=== PATIENT | male | born 1970 | race Caucasian/White ===

== ENCOUNTER → 2018-02-21 | Outpatient (CLI) | payer BC, MEDICAID | END | disposition home or self-care (01) | LOC: CFH 07:38 | PROVIDERS: ATTEND Nurse Practitioner Family | DX: R42 Dizziness and giddiness (principal); R06.02 Shortness of breath; E78.5 Hyperlipidemia, unspecified | CPT/HCPCS: 93306 ==

== ENCOUNTER 2019-08-17 02:26 | Emergency (ER) | payer OTHER ==
[~2019-08-17] VITALS: Ht 170.2 cm; Wt 82.8 kg
--- NOTE | 2019-08-17 02:43 | NUR ---
PT. TO THE ER WITH C/O LOWER ABDOMINAL PAIN ONSET 2099. REPORTS THAT HE ATE A CHILI BURGER AROUND 1545 AND HE BELIEVES HE HAS FOOD POISONING. REPORTS EMESIS X 3 LINING CLOSER. NO ABDOMINAL SURGERIES. NO FEVER OR URINARY SYMPTOMS. NO CHEST PAIN, SHORTNESS OF BREATH OR TROUBLE BREATHING.
[2019-08-17] MEDS ORDERED: ONDANSETRON ODT 4 MG ONE (02:59)
[2019-08-17] MEDS ORDERED: MAALOX/HYOSCYAMINE/LIDOCAINE 45 ML BTL ONE (02:59)
[2019-08-17] MEDS ORDERED: MAALOX/HYOSCYAMINE/LIDOCAINE 45 ML BTL PO ONE (03:00)
[2019-08-17] MEDS ORDERED: ONDANSETRON ODT 4 MG PO ONE (03:00)
[2019-08-17 03:12] LABS: BASOPHILS # (AUTO) 0.03 x10^3/uL (0-0.1); BASOPHILS % (AUTO) 1 % (0-1); EOSINOPHILS # (AUTO) 0.13 x10^3/uL (0-0.4); EOSINOPHILS % (AUTO) 2 % (1-7); LYMPHOCYTES % (AUTO) 22 % (22-44); MD NO; MEAN CORPUSCULAR HEMOGLOBIN 31.6 pg (27.5-34.5); MEAN CORPUSCULAR VOLUME 92.8 fL (81-97); MEAN PLATELET VOLUME 9.7 fL (7.4-10.4); MONOCYTES # (AUTO) 0.54 x10^3/uL (0.2-0.8); MONOCYTES % (AUTO) 8 % (2-9); NEUTROPHILS # (AUTO) 4.64 x10^3/uL (1.8-6.8); NEUTROPHILS % (AUTO) 68 % (42-75); PLATELET COUNT 186 x10^3/uL (130-400); RED BLOOD COUNT 4.97 x10^6/uL (4.38-5.82); RED CELL DISTRIBUTION WIDTH 13.7 % (9.4-14.8)
[2019-08-17 03:20] LABS: ALANINE AMINOTRANSFERASE 60 U/L (12-78); ALBUMIN 3.8 g/dL (3.4-5.0); ANION GAP 8 mmol/L (5-15); CALCIUM 8.6 mg/dL (8.5-10.1); CHLORIDE 106 mmol/L (98-107); CREATININE 1.25 mg/dL (0.7-1.3)
[2019-08-17 03:22] LABS: ALKALINE PHOSPHATASE 75 U/L (45-117); BILIRUBIN,TOTAL 0.6 mg/dL (0.2-1.0); TOTAL PROTEIN 7.3 g/dL (6.4-8.2)
[2019-08-17 03:39] VITALS: BP 146/83
--- NOTE | 2019-08-17 03:39 | NUR ---
NO VOMITING WHILE IN ER. REPORTS NAUSEA RELIEVED WITH ZOFRAN. GI COCKTAIL GIVEN AND PAIN NOW /. REPORTS FEELING MUCH BETTER
[2019-08-17] MEDS ORDERED: POTASSIUM CHLORIDE 20 MEQ TAB.ER.PRT ONE (03:47)
[2019-08-17] MEDS ORDERED: POTASSIUM CHLORIDE 20 MEQ TAB.ER.PRT PO ONE (04:00)
== END 2019-08-17 04:07 | disposition home or self-care (01) ==
LOC: ED 03:29
DX: E87.6 Hypokalemia (principal); R11.2 Nausea with vomiting, unspecified; R10.10 Upper abdominal pain, unspecified; I10 Essential (primary) hypertension; E11.9 Type 2 diabetes mellitus without complications
CPT/HCPCS: 36415; 80053; 83690; 85025; 99284; Q0162

== ENCOUNTER 2020-09-25 16:35 | Emergency (ER) | payer OTHER ==
[~2020-09-25] VITALS: Ht 170.2 cm; Wt 86.0 kg
[2020-09-25] MEDS ORDERED: L.E.T SOLUTION TP ONE (18:00)
[2020-09-25] MEDS ORDERED: DIPH,PERTUSS(ACELL),TET VAC/PF 0.5 ML IM-VACC ONE ×2 (18:00→19:14)
[2020-09-25 19:06] VITALS: BP 121/86
--- NOTE | 2020-09-25 19:18 | NUR ---
First contact with patient: patient ambulatory to room from lobby. ZUNIGA
== END 2020-09-25 20:14 | disposition home or self-care (01) ==
LOC: ED 16:45
DX: T23.202A Burn of second degree of left hand, unspecified site, initial encounter (principal); T31.0 Burns involving less than 10% of body surface; I10 Essential (primary) hypertension; E11.9 Type 2 diabetes mellitus without complications; X10.2XXA Contact with fats and cooking oils, initial encounter; Y93.89 Activity, other specified; Y92.89 Other specified places as the place of occurrence of the external cause; Y99.8 Other external cause status
CPT/HCPCS: 16020; 90471; 90715; 99283